=== PATIENT | female | born 1980 | race Caucasian/White ===

== ENCOUNTER 2019-07-30 18:24 | Emergency (ER) | payer SELFPAY ==
--- NOTE | 2019-07-30 19:38 | EDM.PDOC ---
ED HPI GENERAL MEDICAL PROBLEM - General Stated Complaint: 20 WKS ,BLEEDING Time Seen by Provider: 07/30/19 19:37 Source of Information: Reports: Patient, RN Notes Reviewed History Limitations: Reports: No Limitations - History of Present Illness INITIAL COMMENTS - FREE TEXT/NARRATIVE: 38 y o Multigravida with vaginal bleeding on and off for 1 week. No cramps,no fever or pain. No foul smelling discharge. Blood type O + Lower Back Pain Score (Numeric/FACES): 6 - Related Data Allergies Allergy/AdvReac Type Severity Reaction Status Date / Time No Known Allergies Allergy Verified 07/30/19 19:53 ED ROS GENERAL - Review of Systems Review Of Systems: ROS reveals no pertinent complaints other than HPI. ED EXAM - Physical Exam Exam: See Below Exam Limited By: No Limitations General Appearance: Alert, WD/WN Head: Atraumatic Neck: Normal Inspection Respiratory/Chest: No Respiratory Distress Neurological: Alert Psychiatric: Normal Affect Course - Vital Signs Last Recorded V/S: Last Vital Signs Temp 98.2 F 07/30/19 19:20 Pulse 104 H 07/30/19 19:20 Resp 20 07/30/19 19:20 BP 147/74 H 07/30/19 19:20 Pulse Ox 100 07/30/19 19:20 - Orders/Labs/Meds Orders: Active Orders 24 hr Category Date Time Status OB Transvaginal [US] Stat Exams 07/30/19 19:36 Ordered Departure - Departure Time of Disposition: 20:34 Disposition: Home, Self-Care 01 Condition: Good Clinical Impression: Threatened - Discharge Information Referrals: PCP,None [Primary Care Provider] - - Problem List & Annotations (1) Threatened SNOMED Code(s): 60968184 Code(s): O20.0 - THREATENED Status: Acute Current Visit: Yes - Problem List Review Problem List Initiated/Reviewed/Updated: Yes - My Orders Last 24 Hours: My Active Orders 07/30/19 19:36 OB Transvaginal [US] Stat - Assessment/Plan Last 24 Hours: My Active Orders 07/30/19 19:36 OB Transvaginal [US] Stat Plan: DC home. Bed rest. Follow up on Thursday
--- NOTE | 2019-08-01 11:41 | US ---
INDICATION: Bleeding. OB ULTRASOUND, LIMITED: Multiple ultrasonic images were obtained, 07/30/19 - no comparisons. A single, longitudinally lying, cephalic presenting fetus is noted with the head in the lower uterine segment. The cervix appears to be normal, (measured 5.33 cm). A normal amount of amniotic fluid is noted. The placenta is fundal, anteroposterior, without evidence of previa or abruption. A regular heart rate of 167 BPM was noted. No adnexal mass lesion or free fluid collection was demonstrated. Maternal ovaries were not demonstrated. IMPRESSION: No bleeding site identified. MTDD
== END 2019-07-30 20:46 | disposition home or self-care (01) ==
LOC: FB.ED 18:24
DX: O20.0 Threatened abortion (principal); O09.522 Supervision of elderly multigravida, second trimester; Z3A.20 20 weeks gestation of pregnancy
CPT/HCPCS: 76815; 99284-25

== ENCOUNTER 2020-04-16 19:14 | Emergency (ER) | payer MEDICAID ==
[2020-04-16] MEDS ORDERED: Sodium Chloride 0.9% 10 ML Syringe FLUSH PRN (19:28)
[2020-04-16] MEDS ORDERED: Ondansetron 4 MG/2 ML SDV IVPUSH ONE ×2 (19:29→19:35)
[2020-04-16] MEDS ORDERED: Sodium Chloride 0.9% 1,000 ML IV SCH ×2 (19:30→19:45)
--- NOTE | 2020-04-16 20:26 | EDM.PDOC ---
ED HPI GENERAL MEDICAL PROBLEM - General Chief Complaint: Gastrointestinal Problem Stated Complaint: DIZZINESS Time Seen by Provider: 04/16/20 19:20 Source of Information: Reports: Patient History Limitations: Reports: No Limitations - History of Present Illness INITIAL COMMENTS - FREE TEXT/NARRATIVE: Patient presented to the ED because of N/V/D and couldn't keep anything down. She has a h/o cervical CA stage 3B and is undergoing chemotherapy and radiation. Her chemotherapy was 5 days ago and her radiation was 4 days ago. After the chemo and rad she c/o nausea/vomiting and after the radiation she started to have a watery diarrhea. There is no fever,chills, cough and cold symptoms or any abdominal pain. - Related Data Allergies Allergy/AdvReac Type Severity Reaction Status Date / Time No Known Allergies Allergy Verified 07/30/19 19:53 Home Meds: Home Meds Cyclobenzaprine [Flexeril] 10 mg PO TID PRN 04/16/20 [History] Diphenoxylate HCl/Atropine [Lomotil Tablet] 2 each PO Q6H PRN #30 tablet [Rx] Ondansetron [Ondansetron ODT] 8 mg PO TID PRN 04/16/20 [History] Potassium Chloride [Klor-Con M20] 40 meq PO TID #6 tab.er 04/16/20 [Rx] Prochlorperazine [Compazine] 10 ng PO QID PRN 04/16/20 [History] dexAMETHasone [Dexamethasone] 2 tab PO DAILY PRN 04/16/20 [History] hydrOXYzine pamoate [Vistaril] 50 mg PO Q6H PRN #30 cap 04/16/20 [Rx] oxyCODONE 5 mg PO Q6H 04/16/20 [History] traMADol [Ultram] 50 mg PO Q6H PRN 04/16/20 [History] Past Medical History HEENT History: Reports: Other (See Below) Other HEENT History: years ago broke her nose and had surgery to repair it CLINICAL TRIAL EDUCATOR History: Reports: Other (See Below) Other CLINICAL TRIAL EDUCATOR History: G9,P8 vaginal deliveries Psychiatric History: Reports: Anxiety - Infectious Disease History Infectious Disease History: Reports: Chicken Pox - Past Surgical History HEENT Surgical History: Reports: Naso-Sinus Surgery Social & Family History - Family History Family Medical History: Noncontributory - Tobacco Use Smoking Status *Q: Never Smoker - Caffeine Use Caffeine Use: Reports: Coffee, Soda Other Caffeine Use: daily ED ROS GENERAL - Review of Systems Review Of Systems: See Below Constitutional: Reports: No Symptoms HEENT: Reports: No Symptoms Respiratory: Reports: No Symptoms Cardiovascular: Reports: No Symptoms Endocrine: Reports: No Symptoms GI/Abdominal: Reports: Diarrhea, Nausea, Vomiting. Denies: Abdominal Pain : Reports: No Symptoms Musculoskeletal: Reports: No Symptoms Skin: Reports: No Symptoms ED EXAM, GI/ABD - Physical Exam Exam: See Below Exam Limited By: No Limitations General Appearance: Alert, No Apparent Distress Ears: Normal External Exam, Normal Canal Nose: Normal Inspection, Normal Mucosa, No Blood Throat/Mouth: Normal Inspection, Normal Lips, Normal Teeth Head: Atraumatic, Normocephalic Neck: Normal Inspection, Supple, Non-Tender, Full Range of Motion Respiratory/Chest: No Respiratory Distress, Lungs Clear, Normal Breath Sounds Cardiovascular: Normal Peripheral Pulses, Regular Rate, Rhythm, No Edema GI/Abdominal Exam: Soft, Non-Tender, Other (hyperactive bowel sound). No: No Distention Extremities: Normal Inspection, Normal Range of Motion, Non-Tender, Slow Capillary Refill Course - Vital Signs Text/Narrative:: Labs reviewed with the patient and verbalized full understanding NS 2L bolus Zofran 8 mg IV Klorcon 40 meq po x1 Vistaril 50 mg IM x1 Bactrim DS 1 po x1 Patient decided to go home since she is feeling better after the above treatment. She said she doesn't want to miss her oncology and radiation appointment tomorrow. Last Recorded V/S: Last Vital Signs Temp 36.4 C 04/16/20 19:14 Pulse 105 H 04/16/20 19:14 Resp 18 04/16/20 19:14 BP 105/71 04/16/20 19:14 Pulse Ox 100 04/16/20 19:14 - Orders/Labs/Meds Orders: Active Orders 24 hr Category Date Time Status CULTURE URINE [RM] Stat Lab 04/16/20 20:26 Received Sodium Chloride 0.9% [Normal Saline] 1,000 ml Med 04/16/20 19:30 Active IV ASDIRECTED Sodium Chloride 0.9% [Normal Saline] 1,000 ml Med 04/16/20 19:45 Active IV ASDIRECTED Sodium Chloride 0.9% [Saline Flush] Med 04/16/20 19:28 Active 10 ml FLUSH ASDIRECTED PRN Saline Lock Insert [OM.PC] Routine Oth 04/16/20 19:28 Ordered Medication Orders Sodium Chloride (Normal Saline) 1,000 mls @ 999 mls/hr IV ASDIRECTED KONRAD Last Admin: 04/16/20 19:43 Dose: 999 mls/hr Sodium Chloride (Normal Saline) 1,000 mls @ 999 mls/hr IV ASDIRECTED KONRAD Last Admin: 04/16/20 20:48 Dose: 999 mls/hr Sodium Chloride (Saline Flush) 10 ml FLUSH ASDIRECTED PRN PRN Reason: Keep Vein Open Last Admin: 04/16/20 19:44 Dose: 10 ml Labs: Laboratory Tests 04/16/20 04/16/20 04/16/20 Range/Units 19:45 19:45 20:30 WBC 4.4 L (4.5-12.0) X10-3/uL RBC 3.77 (3.23-5.20) x10(6)uL Hgb 9.8 L (11.5-15.5) g/dL Hct 30.4 (30.0-51.3) % MCV 80.8 (80-96) fL MCH 26.1 L (27.7-33.6) pg MCHC 32.4 (32.2-35.4) g/dL RDW 13.4 (11.5-15.5) % Plt Count 258 (125-369) X10(3)uL MPV 6.3 L (7.4-10.4) fL Neut % (Auto) 82.9 H (46-82) % Lymph % (Auto) 4.5 L (13-37) % [place] % (Auto) 10.0 (4-12) % Eos % (Auto) 2 (1.0-5.0) % Baso % (Auto) 0 (0-2) % Neut # (Auto) 3.7 (1.6-8.3) # Lymph # (Auto) 0.2 L (0.6-5.0) # [place] # (Auto) 0.4 (0.0-1.3) # Eos # (Auto) 0.1 (0.0-0.8) # Baso # (Auto) 0.0 (0.0-0.2) # Sodium 135 (135-145) mmol/L Potassium 3.4 L (3.5-5.3) mmol/L Chloride 99 L (100-110) mmol/L Carbon Dioxide 26 (21-32) mmol/L BUN 25 H (7-18) mg/dL Creatinine 1.2 H (0.55-1.02) mg/dL Est Cr Clr Drug Dosing 64.48 mL/min Estimated GFR (MDRD) 50 L (>60) BUN/Creatinine Ratio 20.8 H (9-20) Glucose 123 H (80-116) mg/dL Calcium 8.8 (8.6-10.2) mg/dL Total Bilirubin 0.2 (0.1-1.3) mg/dL AST 12 (5-25) IU/L ALT 36 (12-36) U/L Alkaline Phosphatase 88 (56-112) IU/L Total Protein 7.2 (6.0-8.0) g/dL Albumin 3.4 L (3.5-5.2) g/dL Globulin 3.8 g/dL Albumin/Globulin Ratio 0.9 Urine Color Red (YELLOW) Urine Appearance Cloudy (CLEAR) Urine pH 6.5 (5.0-6.5) Ur Specific [place] 1.010 (1.010-1.025) Urine Protein 500 H (NEGATIVE) mg/dL Urine Glucose (UA) Normal (NORMAL) mg/dL Urine Ketones Negative (NEGATIVE) mg/dL Urine Occult Blood Large H (NEGATIVE) Urine Nitrite Negative (NEGATIVE) Urine Bilirubin Negative (NEGATIVE) Urine Urobilinogen Normal (NEGATIVE) mg/dL Ur Leukocyte Esterase Large H (NEGATIVE) Urine RBC 75-100 H (0-5) Urine WBC 10-20 H (0-5) Ur Squamous Epith Cells Occasional (NS,R,O) Urine Bacteria Moderate H (NS) Meds: Medications Generic Name Dose Route Start Last Admin Trade Name Freq PRN Reason Stop Dose Admin Sodium Chloride 1,000 mls @ 999 mls/hr 04/16/20 19:30 04/16/20 19:43 Normal Saline IV 999 mls/hr ASDIRECTED KNORAD Administration Sodium Chloride 1,000 mls @ 999 mls/hr 04/16/20 19:45 04/16/20 20:48 Normal Saline IV 999 mls/hr ASDIRECTED KONRAD Administration Sodium Chloride 10 ml 04/16/20 19:28 04/16/20 19:44 Saline Flush FLUSH 10 ml ASDIRECTED PRN Administration Keep Vein Open Discontinued Medications Generic Name Dose Route Start Last Admin Trade Name Freq PRN Reason Stop Dose Admin Diphenoxylate HCl/Atropine 2 tab 04/16/20 20:50 04/16/20 21:18 Lomotil 0.025-2.5 Mg PO 04/16/20 20:51 2 tab ONETIME ONE Administration Hydroxyzine HCl 50 mg 04/16/20 20:50 04/16/20 20:58 Vistaril IM 04/16/20 20:51 50 mg ONETIME ONE Administration Ondansetron HCl 4 mg 04/16/20 19:29 04/16/20 19:43 Zofran IVPUSH 04/16/20 19:30 4 mg ONETIME ONE Administration Ondansetron HCl 4 mg 04/16/20 19:35 04/16/20 19:43 Zofran IVPUSH 04/16/20 19:36 4 mg ONETIME ONE Administration Potassium Chloride 40 meq 04/16/20 20:50 04/16/20 21:18 Klor-Con M20 PO 04/16/20 20:51 40 meq ONETIME ONE Administration Trimethoprim/Sulfamethoxazole 1 tab 04/16/20 20:50 04/16/20 21:18 Septra Ds PO 04/16/20 20:51 1 tab ONETIME ONE Administration Departure - Departure Time of Disposition: 21:55 Disposition: Home, Self-Care 01 Condition: Good Clinical Impression: Gastroenteritis - Discharge Information Prescriptions: Diphenoxylate HCl/Atropine [Lomotil Tablet] 2 each PO Q6H PRN #30 tablet PRN Reason: Diarrhea hydrOXYzine pamoate [Vistaril] 50 mg PO Q6H PRN #30 cap PRN Reason: Nausea Potassium Chloride [Klor-Con M20] 40 meq PO TID #6 tab.er Referrals: Alban Kamara MD [Primary Care Provider] - Forms: ED Department Discharge Additional Instructions: Please read discharge instructions on gastroenteritis Frequent hand washing Increase oral fluids at leat 2 liters a day Lomotil 2 tablets every 6 hours as needed for diarrhea Vistaril/hydroxyzine 50 mg every 6 hours as needed for nausea/vomiting. You can take this medicine with your zofran and compazine. Folllow up as needed. Sepsis Event Note (ED) - Evaluation Sepsis Screening Result: No Definite Risk - Focused Exam Vital Signs: Vital Signs Temp Pulse Resp BP Pulse Ox 04/16/20 19:14 36.4 C 105 H 18 105/71 100 - My Orders Last 24 Hours: My Active Orders 04/16/20 19:28 Sodium Chloride 0.9% [Saline Flush] 10 ml FLUSH ASDIRECTED PRN Saline Lock Insert [OM.PC] Routine 04/16/20 19:30 Sodium Chloride 0.9% [Normal Saline] 1,000 ml IV ASDIRECTED 04/16/20 19:45 Sodium Chloride 0.9% [Normal Saline] 1,000 ml IV ASDIRECTED 04/16/20 20:26 CULTURE URINE [RM] Stat - Assessment/Plan Last 24 Hours: My Active Orders 04/16/20 19:28 Sodium Chloride 0.9% [Saline Flush] 10 ml FLUSH ASDIRECTED PRN Saline Lock Insert [OM.PC] Routine 04/16/20 19:30 Sodium Chloride 0.9% [Normal Saline] 1,000 ml IV ASDIRECTED 04/16/20 19:45 Sodium Chloride 0.9% [Normal Saline] 1,000 ml IV ASDIRECTED 04/16/20 20:26 CULTURE URINE [RM] Stat
[2020-04-16] MEDS ORDERED: Atropine/Diphenoxylate 0.025-2.5 MG Tab PO ONE (20:50)
[2020-04-16] MEDS ORDERED: Potassium Chloride 20 MEQ Tab.ER PO ONE (20:50)
[2020-04-16] MEDS ORDERED: Sulfamethoxazole/Trimethoprim 800-160 MG Tab PO ONE (20:50)
[2020-04-16] MEDS ORDERED: hydrOXYzine HCl 50 MG/ML SDV IM ONE (20:50)
== END 2020-04-16 22:12 | disposition home or self-care (01) ==
LOC: FB.ED 19:14
DX: K52.9 Noninfective gastroenteritis and colitis, unspecified (principal); F41.9 Anxiety disorder, unspecified; Z79.899 Other long term (current) drug therapy
CPT/HCPCS: 36415; 80053; 81001; 85025; 87086; 96361; 96372; 96374; 99284; A9270; J2405; J3410; J7030